=== PATIENT | female | born 1950 | race African-American/Black ===

== ENCOUNTER → 2016-09-20 | Outpatient (CLI) | payer MEDICARE ==
[2015-05-03 12:03] VITALS: BP 115/55
[~2016-09-20] MED LIST: ASPI81TA2 PO; CYCL5TAB PO; LATA2.5D2 OP; LOSA100T6 PO; LOSA50TA2 PO; METF10002 PO; MULT1TAB52 PO; SITA50TA PO
--- NOTE | 2016-09-20 12:41 | RAD ---
EXAM: Carotid Doppler sonogram. HISTORY: Carotid bruit. TECHNIQUE: Lewis scale and color Doppler sonographic evaluation of the neck with spectral waveform analysis was performed and static images are submitted for review. FINDINGS: RIGHT: The peak systolic velocity within the common carotid artery is 116 cm/sec. The peak systolic velocity within the internal carotid artery is 67 cm/sec and the end diastolic velocity within the internal carotid artery is 18 cm/sec. The ICA/CCA ratio is 0.58. Grayscale images demonstrate no significant plaquing. LEFT: The peak systolic velocity within the common carotid artery is 156 cm/sec. There is no clear grayscale stenosis at this site. The peak systolic velocity within the internal carotid artery is 101 cm/sec and the end diastolic velocity within the internal carotid artery is 33 cm/sec. The ICA/CCA ratio is 0.64. Grayscale images demonstrate no significant plaquing. There is antegrade flow within both vertebral arteries. The driver's license reviewing officer notes bilateral internal carotid artery tortuosity. There are multiple solid nodules incidentally noted within the thyroid lobes. These measure up to 2.5 cm on the right. IMPRESSION: 1. No evidence of hemodynamically significant stenosis. 2. Multinodular goiter. This is usually a benign process, but can be further assessed with thyroid ultrasound if there is further concern. PQRS Compliance Statement - Stenosis calculations for CT, MR and conventional angiography are based upon measurement of the distal ICA diameter in accordance with the NASCET methodology. Stenosis calculations for carotid ultrasound studies are derived from validated velocity criteria which are known to correlate with the NASCET methodology.
--- NOTE | 2016-09-20 15:41 | CARD ---
APPROVED REPORT EXAM: Two-dimensional and M-mode echocardiogram with Doppler and color Doppler. Other Information Quality : Good INDICATION Abnormal ECG Hypertension/HCVD RISK FACTORS Hypertension Hyperlipidemia Diabetes 2D DIMENSIONS RVDd2.6 (2.9-3.5cm)Left Atrium(2D)4.0 (1.6-4.0cm) IVSd1.0 (0.7-1.1cm)Aortic Root(2D)2.7 (2.0-3.7cm) LVDd4.5 (3.9-5.9cm)LVOT Diameter1.9 (1.8-2.4cm) PWd1.1 (0.7-1.1cm)LVDs2.7 (2.5-4.0cm) FS (%) 33.0 %SV65.2 ml LVEF(%)65.0 (>50%) Aortic Valve AoV Peak José Luis.169.5cm/sAoV VTI34.3cm AO Peak GR.11.5mmHgLVOT Peak José Luis.117.8cm/s LVOT VTI 26.90cmAO Mean GR.6mmHg LUIS DANIEL (VMAX)1.55qd0LEU (VTI)2.15cm2 Mitral Valve MV E Xdfomrdt57.0cm/sMV DECEL BFXI545oi MV A Oddzjfcm77.0cm/sMV INN05fs E/A Ratio0.8MVA (PHT)2.54cm2 TDI E/Lateral E'8.4E/Medial E'9.1 Tricuspid Valve TR P. Ceflgbwz295ws/sRAP YHVBXJYX7xyHg TR Peak Gr.54riEhXMHN13qiKx Pulmonary Vein S1 Wjbxidcq23.8cm/sD2 Nrumzlje68.5cm/s PVa teokwybk977mlvi LEFT VENTRICLE The left ventricle is normal size. There is normal left ventricular wall thickness. Left ventricle sy stolic function is normal. The Ejection Fraction is 60-65%. There is normal LV segmental wall motion. Transmitral Doppler flow pattern is Grade I-abnormal relaxation pattern. RIGHT VENTRICLE The right ventricle is normal size. The right ventricular systolic function is normal. ATRIA The left atrium is mildly dilated. The right atrium size is normal. The interatrial septum is intact with no evidence for an atrial septal defect or patent foramen ovale as noted on 2-D or Doppler imagi ng. AORTIC VALVE The aortic valve is calcified but opens well. Doppler and Color Flow revealed no significant aortic r egurgitation. There is no significant aortic valvular stenosis. MITRAL VALVE The mitral valve is calcified but opens well. There is no evidence of mitral valve prolapse. There is no mitral valve stenosis. Doppler and Color-flow revealed trace mitral regurgitation. TRICUSPID VALVE The tricuspid valve is normal in structure and function. Doppler and Color Flow revealed mild tricusp id regurgitation. There is mild pulmonary hypertension. The PA pressure was estimated at 31 mmHg. The re is no tricuspid valve stenosis. PULMONIC VALVE The pulmonary valve is normal in structure and function. Doppler and Color Flow revealed mild pulmoni c valvular regurgitation. There is no pulmonic valvular stenosis. GREAT VESSELS The aortic root is normal in size. The ascending aorta is normal in size. The IVC is normal in size a nd collapses >50% with inspiration. PERICARDIAL EFFUSION There is no evidence of significant pericardial effusion. Critical Notification Critical Value: No <Conclusion> Left ventricle systolic function is normal. The Ejection Fraction is 60-65%. There is normal LV segmental wall motion. Transmitral Doppler flow pattern is Grade I-abnormal relaxation pattern. The left atrium is mildly dilated. Trace mitral regurgitation. Mild tricuspid regurgitation. The PA pressure was estimated at 31 mmHg. There is no evidence of significant pericardial effusion.
== END | disposition home or self-care (01) ==
LOC: US 10:20
PROVIDERS: ATTEND Internal Medicine
DX: I07.1 Rheumatic tricuspid insufficiency (principal); I27.2 Other secondary pulmonary hypertension; R94.31 Abnormal electrocardiogram [ECG] [EKG]; I10 Essential (primary) hypertension; E04.2 Nontoxic multinodular goiter; I37.1 Nonrheumatic pulmonary valve insufficiency
CPT/HCPCS: 93306; 93880

== ENCOUNTER → 2017-03-05 | Outpatient (CLI) | payer MEDICARE ==
[2015-05-03 12:03] VITALS: BP 115/55
[~2017-03-05] MED LIST changes: +ASPI-630 PO; -ASPI81TA2 PO; +METF-620 PO; -METF10002 PO
--- NOTE | 2017-03-05 14:32 | RAD ---
Indication pain. AP and frog leg views of the left hip were obtained. There are some degenerative changes involving the hip. This is manifested as modest joint space compartment narrowing. No acute finding is seen
--- NOTE | 2017-03-05 14:35 | RAD ---
Indication shoulder pain for 2 months. Internally and externally rotated views of the left shoulder as well as a Y view were obtained. There are some mild degenerative changes at the AC joint. Some degenerative change is seen about the greater tubercle. Significant degenerative changes at the glenohumeral joint is not seen and no acute finding is seen. IMPRESSION: Mild degenerative change. No acute finding seen
== END | disposition home or self-care (01) ==
LOC: RAD 13:46
PROVIDERS: ATTEND Internal Medicine
DX: M19.012 Primary osteoarthritis, left shoulder (principal); M16.12 Unilateral primary osteoarthritis, left hip
CPT/HCPCS: 73030; 73502

== ENCOUNTER 2018-07-26 08:11 | Emergency (ER) | payer MEDICARE ==
[~2018-07-26] VITALS: Ht 160 cm; Wt 94.8 kg
[~2018-07-26 08:11] MED LIST changes: +LOSA-73 PO; +LOSA100T14 PO; -LOSA100T6 PO; -LOSA50TA2 PO; -METF-620 PO; +METF10007 PO
[2018-07-26] MEDS ORDERED: HYDR12.58 PO (08:34)
[2018-07-26] MEDS ORDERED: LABE100T5 PO (08:34)
[2018-07-26] MEDS ORDERED: CRESTOR40 MG PO (08:34)
[2018-07-26 08:37] LABS: BASO # 0.1 x10^3/uL (0.0-0.2); BASO % 1 % (0-3); EOS # 0.1 x10^3/uL (0.0-0.7); EOS % 2 % (0-3); HEMATOCRIT 34.7 % (36.0-47.0); HEMOGLOBIN 11.6 g/dL (12.0-15.5); LYMPH # 1.4 x10^3/uL (1.0-4.8); LYMPH % 30 % (24-48); MEAN CORPUSCULAR HEMOGLOBIN 26 pg (25-35); MEAN CORPUSCULAR HGB CONC 33 g/dL (31-37); MEAN CORPUSCULAR VOLUME 79 fL (79-100); MONO # 0.4 x10^3/uL (0.0-1.1); MONO % 8 % (0-9); NEUT # 2.6 x10^3uL (1.8-7.7); NEUT % 58 % (31-73); PLATELET COUNT 262 x10^3/uL (140-400); RED CELL DISTRIBUTION WIDTH 13.9 % (11.5-14.5); WHITE BLOOD COUNT 4.5 x10^3/uL (4.0-11.0)
[2018-07-26 08:46] LABS: CALCIUM 9.7 mg/dL (8.5-10.1); CREATININE 0.8 mg/dL (0.6-1.0); GFR 85.8; POTASSIUM 3.6 mmol/L (3.5-5.1)
[2018-07-26 08:52] LABS: ALBUMIN 3.3 g/dL (3.4-5.0); ALBUMIN/GLOBULIN RATIO 0.8 (1.0-1.7); MAGNESIUM 1.5 mg/dL (1.8-2.4); TOTAL BILIRUBIN 0.2 mg/dL (0.2-1.0); TOTAL PROTEIN 7.3 g/dL (6.4-8.2)
[2018-07-26] MEDS ORDERED: MECLIZINE HCL 12.5 MG TABLET. PO ONE (09:30)
--- NOTE | 2018-07-26 09:39 | RAD ---
Portable chest, 07/26/2018: HISTORY: Shortness of breath, dizziness Comparison is made to a study from 03/27/2018. The left ventricle is mildly enlarged. There is mild tortuosity of the thoracic aorta. The pulmonary vascularity is normal. There is minimal linear scarring or atelectasis laterally in the left lower chest. No acute infiltrate is seen. There is no evidence of pleural fluid. Mild spurring is present in the spine. IMPRESSION: 1. Left ventricular enlargement. 2. Minimal left basilar linear atelectasis or scarring. Electronically signed by: Cristopher Andino MD (07/26/2018 9:34 AM) [facility]
--- NOTE | 2018-07-26 09:42 | RAD ---
CT of the head without contrast, 07/26/2018: HISTORY: Dizziness There has been a previous left parietal craniotomy. 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 The ventricles are within normal limits in size. There is no shift of the midline structures. There is no evidence of acute intracranial hemorrhage or mass effect. IMPRESSION: 1. 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 2. No acute intracranial abnormality is detected. PQRS Compliance Statement: One or more of the following individualized dose reduction techniques were utilized for this examination: 1. Automated exposure control 2. Adjustment of the mA and/or kV according to patient size 3. Use of iterative reconstruction technique Electronically signed by: Cristopher Andino MD (07/26/2018 9:38 AM) [facility]
--- NOTE | 2018-07-26 09:46 | PHYS DOC ---
Past Medical History Past Medical History: Diabetes-Type II, Glaucoma, High Cholesterol, Hypertension Past Surgical History: Other Additional Past Surgical Histo: AV Malformation of the brain Alcohol Use: None Drug Use: None Adult General Chief Complaint Chief Complaint: DIZZY/LIGHT HEADED HPI HPI Patient is a 68 year old female presented to ER today for evaluation of dizziness when she woke up this morning. Patient feels like the room was spinning around her, denies any ringing in her ear. Patient denies any chest pain, no trouble breathing. Patient says she has this same episode 3 days ago but it was not as severe. Patient denies any headache, no neck pain, no blurry vision. Review of Systems Review of Systems Constitutional: Denies fever or chills [] Eyes: Denies change in visual acuity, redness, or eye pain [] HENT: Denies nasal congestion or sore throat [] Respiratory: Denies cough or shortness of breath [] Cardiovascular: No additional information not addressed in HPI [] GI: Denies abdominal pain, nausea, vomiting, bloody stools or diarrhea [] : Denies dysuria or hematuria [] Musculoskeletal: Denies back pain or joint pain [] Integument: Denies rash or skin lesions [] Neurologic: Denies headache, focal weakness or sensory changes. POSITIVE FOR DIZZINESS. Endocrine: Denies polyuria or polydipsia [] All other systems were reviewed and found to be within normal limits, except as documented in this note. Current Medications Current Medications Current Medications Medications (Trade) Dose Ordered Sig/Amadou Start Time Stop Time Status Last Admin Dose Admin Meclizine HCl (Antivert) 50 mg 1X ONCE 07/26/18 09:30 07/26/18 09:31 DC 07/26/18 09:34 50 MG Allergies Allergies Allergies Coded Allergies Type Severity Reaction Last Updated Verified No Known Drug Allergies 05/03/15 No Physical Exam Physical Exam Constitutional: Well developed, well nourished, no acute distress, non-toxic appearance. [] HENT: Normocephalic, atraumatic, bilateral external ears normal, oropharynx moist, no oral exudates, nose normal. RIGHT TM BULGING. Eyes: PERRLA, EOMI, conjunctiva normal, no discharge. [] Neck: Normal range of motion, no tenderness, supple, no stridor. [] Cardiovascular:Heart rate regular rhythm, LOUD SYSTOLIC MURMUR. Lungs & Thorax: Bilateral breath sounds clear to auscultation [] Abdomen: Bowel sounds normal, soft, no tenderness, no masses, no pulsatile masses. [] Skin: Warm, dry, no erythema, no rash. [] Back: No tenderness, no CVA tenderness. [] Extremities: No tenderness, no cyanosis, no clubbing, ROM intact, no edema. [] Neurologic: Alert and oriented X 3, normal motor function, normal sensory function, no focal deficits noted. [] Psychologic: Affect normal, judgement normal, mood normal. [] Current Patient Data Vital Signs Vital Signs Date Time Temp Pulse Resp B/P (MAP) Pulse Ox O2 Delivery O2 Flow Rate FiO2 07/26/18 08:12 98.1 67 18 184/79 (114) 98 Room Air 98.1 Lab Values Laboratory Tests Test 07/26/18 08:25 07/26/18 09:43 White Blood Count 4.5 x10^3/uL (4.0-11.0) Red Blood Count 4.40 x10^6/uL (3.50-5.40) Hemoglobin 11.6 g/dL (12.0-15.5) L Hematocrit 34.7 % (36.0-47.0) L Mean Corpuscular Volume 79 fL (79-100) Mean Corpuscular Hemoglobin 26 pg (25-35) Mean Corpuscular Hemoglobin Concent 33 g/dL (31-37) Red Cell Distribution Width 13.9 % (11.5-14.5) Platelet Count 262 x10^3/uL (140-400) Neutrophils (%) (Auto) 58 % (31-73) Lymphocytes (%) (Auto) 30 % (24-48) Monocytes (%) (Auto) 8 % (0-9) Eosinophils (%) (Auto) 2 % (0-3) Basophils (%) (Auto) 1 % (0-3) Neutrophils # (Auto) 2.6 x10^3uL (1.8-7.7) Lymphocytes # (Auto) 1.4 x10^3/uL (1.0-4.8) Monocytes # (Auto) 0.4 x10^3/uL (0.0-1.1) Eosinophils # (Auto) 0.1 x10^3/uL (0.0-0.7) Basophils # (Auto) 0.1 x10^3/uL (0.0-0.2) Prothrombin Time 12.0 SEC (11.7-14.0) Prothrombin Time INR 0.9 (0.8-1.1) Sodium Level 145 mmol/L (136-145) Potassium Level 3.6 mmol/L (3.5-5.1) Chloride Level 105 mmol/L (98-107) Carbon Dioxide Level 30 mmol/L (21-32) Anion Gap 10 (6-14) Blood Urea Nitrogen 14 mg/dL (7-20) Creatinine 0.8 mg/dL (0.6-1.0) Estimated GFR (Cockcroft-Gault) 85.8 BUN/Creatinine Ratio 18 (6-20) Glucose Level 141 mg/dL (70-99) H Calcium Level 9.7 mg/dL (8.5-10.1) Magnesium Level 1.5 mg/dL (1.8-2.4) L Total Bilirubin 0.2 mg/dL (0.2-1.0) Aspartate Amino Transferase (AST) 20 U/L (15-37) Alanine Aminotransferase (ALT) 21 U/L (14-59) Alkaline Phosphatase 90 U/L (46-116) Creatine Kinase 104 U/L (26-192) Creatine Kinase MB (Mass) 1.5 ng/mL (0.0-3.6) Creatine Kinase MB Relative Index 1.4 % (0-4) Troponin I Quantitative < 0.017 ng/mL (0.000-0.055) RO-Tbt-Q-Type Natriuretic Peptide 271 pg/mL (0-124) H Total Protein 7.3 g/dL (6.4-8.2) Albumin 3.3 g/dL (3.4-5.0) L Albumin/Globulin Ratio 0.8 (1.0-1.7) L Thyroid Stimulating Hormone (TSH) 2.422 uIU/mL (0.358-3.74) Urine Collection Type Void Urine Color Yellow Urine Clarity Clear Urine pH 7.0 Urine Specific [place] 1.015 Urine Protein Negative mg/dL (NEG-TRACE) Urine Glucose (UA) Negative mg/dL (NEG) Urine Ketones (Stick) Negative mg/dL (NEG) Urine Blood Negative (NEG) Urine Nitrite Negative (NEG) Urine Bilirubin Negative (NEG) Urine Urobilinogen Dipstick 0.2 mg/dL (0.2 mg/dL) Urine Leukocyte Esterase Small (NEG) Urine RBC Occ /HPF (0-2) Urine WBC Occ /HPF (0-4) Urine Squamous Epithelial Cells Few /LPF Urine Bacteria Few /HPF (0-FEW) Laboratory Tests 07/26/18 08:25 Laboratory Tests 07/26/18 08:25 EKG EKG EKG WAS READ BY THIS PHYSICIAN AT 954, RATE OF 63 BPM, NO STEMI, SINUS RHYTHM. Radiology/Procedures Radiology/Procedures [][address] [address] IMAGING REPORT Signed PATIENT: NAM MONZON ACCOUNT: [id number] : 1950 LOCATION: ER AGE: 68 SEX: F EXAM STATUS: PRE ER ORD. PHYSICIAN: DOUG WATTS DO REASON: dizziness episode off and on for three days, worse this am. PROCEDURE: CT HEAD WO CONTRAST CT of the head without contrast, 07/26/2018: HISTORY: Dizziness There has been a previous left parietal craniotomy. 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 The ventricles are within normal limits in size. There is no shift of the midline structures. There is no evidence of acute intracranial hemorrhage or mass effect. IMPRESSION: 1. 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 2. No acute intracranial abnormality is detected. PQRS Compliance Statement: One or more of the following individualized dose reduction techniques were utilized for this examination: 1. Automated exposure control 2. Adjustment of the mA and/or kV according to patient size 3. Use of iterative reconstruction technique Electronically signed by: Cristopher Andino MD (07/26/2018 9:38 AM) [facility] DICTATED and SIGNED BY: CRISTOPHER ANDINO MD DATE: 07/26/18 [id number] [place] [address] IMAGING REPORT Signed PATIENT: NAM MONZON ACCOUNT: [id number] : 1950 LOCATION: ER AGE: 68 SEX: F EXAM STATUS: PRE ER ORD. PHYSICIAN: DOUG WATTS DO REASON: soa PROCEDURE: CHEST AP ONLY Portable chest, 07/26/2018: HISTORY: Shortness of breath, dizziness Comparison is made to a study from 03/27/2018. The left ventricle is mildly enlarged. There is mild tortuosity of the thoracic aorta. The pulmonary vascularity is normal. There is minimal linear scarring or atelectasis laterally in the left lower chest. No acute infiltrate is seen. There is no evidence of pleural fluid. Mild spurring is present in the spine. IMPRESSION: 1. Left ventricular enlargement. 2. Minimal left basilar linear atelectasis or scarring. Electronically signed by: Cristopher Andino MD (07/26/2018 9:34 AM) [facility] DICTATED and SIGNED BY: CRISTOPHER ANDINO MD DATE: 07/26/189[address] Course & Med Decision Making Course & Med Decision Making Pertinent Labs and Imaging studies reviewed. (See chart for details) Patient felt much better after she was given Meclizine. She was able to get up and walked without any problem. Patient will be discharged home. She is instructed to follow up with ENT doctor next week for further evaluation. Patient was advised to follow up with her family doctor for referral to senior net developer architect for evaluation of enlarged heart found on xray today. Dragon Disclaimer Dragon Disclaimer This electronic medical record was generated, in whole or in part, using a voice recognition dictation system. Departure Departure Impression: Primary Impression: Vertigo Disposition: 01 HOME, SELF-CARE Condition: IMPROVED Referrals: MAXIMINO PENDLETON MD (PCP) follow up with your doctor for referral to ENT DOCTOR FOR FURTHER EVALUATION. YOU WILL ALSO NEED TO FOLLOW UP WITH CARDIOLOGY FOR EVALUATION OF ENLARGED HEART FOUND ON XRAY TODAY. Patient Instructions: Vertigo Scripts Meclizine Hcl (MECLIZINE HCL) 25 Mg Tablet 1 TAB PO PRN TID PRN for DIZZINESS, #30 TAB Prov: DOUG WATTS DO 07/26/18 DOUG WATTS DO Jul 26, 2018 09:46
[2018-07-26 09:51] LABS: BILIRUBIN,URINE NEGATIVE (NEG); CLARITY,URINE CLEAR; COLOR,URINE YELLOW; NITRITE,URINE NEGATIVE (NEG); PROTEIN,URINE NEGATIVE (NEG-TRACE); UROBILINOGEN,URINE 0.2 mg/dL (0.2 mg/dL)
[2018-07-26 10:00] LABS: BACTERIA,URINE FEW /HPF (0-FEW); RBC,URINE OCC /HPF (0-2); SQUAMOUS EPITHELIAL CELL,UR FEW /LPF; WBC,URINE OCC /HPF (0-4)
[2018-07-26] MEDS ORDERED: MECL25TA3 PO (11:02)
[2018-07-26 11:24] VITALS: BP 152/68
--- NOTE | 2018-07-26 12:11 | EKG ---
[facility] [address] [place] [address] Test Date: 2018-07-26 Test Time: 08:21:29 Pat Name: NAM MONZON Department: Room: Gender: Female Case Coordinator: : 1950 Requested By: DOUG WATTS Order Number: [id number] Reading MD: Jarvis Anderson Measurements Intervals [place] Rate: 65 P: AL: QRS: -9 QRSD: 66 T: 5 QT: 420 QTc: 442 Interpretive Statements ATRIAL FIBRILLATION LEFTWARD AXIS ABNORMAL ECG No previous ECG available for comparison Electronically Signed On 07-31-2018 15:25:01 SCRUFF WORKER by Jarvis Anderson
--- NOTE | 2018-07-26 14:47 | EKG ---
[facility] [address] [place] [address] Test Date: 2018-07-26 Test Time: 09:54:55 Pat Name: NAM MONZON Department: Room: Gender: Female Assigner: FRANCESCA : 1950 Requested By: DOUG WATTS Order Number: [id number] Reading MD: Jarvis Anderson Measurements Intervals [place] Rate: 62 P: 0 WI: 160 QRS: -7 QRSD: 64 T: 5 QT: 402 QTc: 414 Interpretive Statements SINUS RHYTHM LEFTWARD AXIS Electronically Signed On 07-31-2018 15:25:06 PIECE WORK INSPECTOR by Jarvis Anderson
== END 2018-07-26 12:12 | disposition home or self-care (01) ==
LOC: ER 08:11
DX: R42 Dizziness and giddiness (principal); E11.9 Type 2 diabetes mellitus without complications; H40.9 Unspecified glaucoma; I10 Essential (primary) hypertension; E78.00 Pure hypercholesterolemia, unspecified; Z79.899 Other long term (current) drug therapy
CPT/HCPCS: 36415; 70450; 71045; 80053; 81001; 82550; 82553; 83735; 83880; 84443; 84484; 85025; 85610; 87086; 87186; 93005; 99284; J8597

== ENCOUNTER → 2018-08-18 | Outpatient (CLI) | payer MEDICARE ==
[2018-07-26 11:24] VITALS: BP 152/68
[~2018-08-18] MED LIST changes: +CRESTOR40 MG PO; +HYDR12.58 PO; +LABE100T5 PO; +MECL25TA3 PO
[2018-08-18 13:17] LABS: FREE T4 0.92 ng/dL (0.76-1.46); THYROID STIM HORMONE (TSH) 1.339 uIU/mL (0.358-3.74)
--- NOTE | 2018-08-18 13:46 | CARD ---
MR#: [id number] Date of Study: 08/18/2018 Ordering Physician: MAXIMINO PENDLETON, Referring Physician: MAXIMINO PENDLETON, Tech: Perla Holder [facility] APPROVED REPORT EXAM: Two-dimensional and M-mode echocardiogram with Doppler and color Doppler. Other Information Quality : GoodHR: 80bpm Rhythm : NSR INDICATION Enlarged LV on x-ray 2D DIMENSIONS RVDd3.4 (2.9-3.5cm)Left Atrium(2D)3.3 (1.6-4.0cm) IVSd1.1 (0.7-1.1cm)Aortic Root(2D)2.9 (2.0-3.7cm) LVDd4.1 (3.9-5.9cm)LVOT Diameter1.8 (1.8-2.4cm) PWd0.9 (0.7-1.1cm)LVDs2.6 (2.5-4.0cm) FS (%) 36.8 %SV49.4 ml LVEF(%)67.2 (>50%) M-Mode DIMENSIONS Left Atrium(MM)3.67 (2.5-4.0cm)Aortic Root3.07 (2.2-3.7cm) Aortic Valve AoV Peak José Luis.149.1cm/sAoV VTI31.9cm AO Peak GR.8.9mmHgLVOT Peak José Luis.94.2cm/s AO Mean GR.5mmHgAVA (VMAX)1.60cm2 LUIS DANIEL (VTI)1.70cm2 Mitral Valve MV E Vkghlquj09.8cm/sMV DECEL RMSW582oy MV A Vydhyvdv040.2cm/sE/A Ratio0.6 MV A Pupkdcpv755ju Pulmonary Valve PV Peak Fuivegzg88.2cm/s Tricuspid Valve TR P. Wihhsest573eg/sRAP SVAWRPEG0clRi TR Peak Gr.08jbQrQGDA29mqZm Pulmonary Vein S1 Xzmefkvl33.2cm/sD2 Egwvieli67.3cm/s PVa ttpisesp206rejt LEFT VENTRICLE The left ventricle is normal size. There is normal left ventricular wall thickness. The left ventricu lar systolic function is normal. The Ejection Fraction is 60-65%. There is normal LV segmental wall m otion. Transmitral Doppler flow pattern is Grade I-abnormal relaxation pattern. RIGHT VENTRICLE The right ventricle is normal size. There is normal right ventricular wall thickness. The right ventr icular systolic function is normal. ATRIA The left atrium size is normal. The right atrium size is normal. The interatrial septum is intact wit h no evidence for an atrial septal defect or patent foramen ovale as noted on 2-D or Doppler imaging. AORTIC VALVE The aortic valve is thickened but opens well. The aortic valve is trileaflet. Doppler and Color Flow revealed no significant aortic regurgitation. There is no significant aortic valvular stenosis. MITRAL VALVE The mitral valve is thickened but opens well. There is no evidence of mitral valve prolapse. There is no mitral valve stenosis. Doppler and Color Flow revealed no mitral valve regurgitation noted. TRICUSPID VALVE The tricuspid valve is normal in structure and function. Doppler and Color Flow revealed trace tricus pid regurgitation. The PA pressure was estimated at 27 mmHg. There is no tricuspid valve prolapse or vegetation. There is no tricuspid valve stenosis. PULMONIC VALVE The pulmonary valve is normal in structure and function. Doppler and Color Flow revealed trace pulmon ic valvular regurgitation. There is no pulmonic valvular stenosis. GREAT VESSELS The aortic root is normal in size. The ascending aorta is normal in size. The IVC is normal in size a nd collapses >50% with inspiration. PERICARDIAL EFFUSION There is no evidence of significant pericardial effusion. Critical Notification Critical Value: No <Conclusion> The left ventricular systolic function is normal. The Ejection Fraction is 60-65%. There is normal LV segmental wall motion. Transmitral Doppler flow pattern is Grade I-abnormal relaxation pattern. Trace tricuspid regurgitation. The PA pressure was estimated at 27 mmHg. There is no evidence of significant pericardial effusion. Signed by : Jarvis Anderson, Electronically Approved : 08/18/2018 13:44:33
[2018-08-18 19:12] LABS: HEMOGLOBIN A1C 6.7 % (4.8-5.6)
== END | disposition home or self-care (01) ==
LOC: ECHO 12:21
PROVIDERS: ATTEND Internal Medicine
DX: I51.7 Cardiomegaly (principal); R00.8 Other abnormalities of heart beat
CPT/HCPCS: 36415; 82043; 83036; 83880; 84439; 84443; 93306

== ENCOUNTER → 2018-11-11 | Outpatient (CLI) | payer MEDICARE ==
--- NOTE | 2018-11-11 15:20 | RAD ---
EXAM: Right knee, 3 views. HISTORY: Pain. COMPARISON: 02/09/2011. FINDINGS: There is medial compartment joint space narrowing with subchondral sclerosis, marginal osteophytosis and slight bony remodeling. There is also patellofemoral compartment joint space narrowing with marginal spurring. There is lateral compartment chondrocalcinosis. There is slight enthesopathy along the patella. No significant joint effusion is seen. IMPRESSION: 1. Moderate medial and patellofemoral compartment osteoarthritis the right knee and lateral compartment chondrocalcinosis. 2. No acute osseous finding. Electronically signed by: Hailey Rodriguez MD (11/11/2018 3:17 PM) [facility]
--- NOTE | 2018-11-11 15:31 | RAD ---
EXAM: Right lower extremity venous Doppler sonogram. HISTORY: Pain. TECHNIQUE: Lewis scale and color Doppler sonographic evaluation of the right lower extremity veins with spectral waveform analysis was performed. FINDINGS: There is normal color flow, normal compressibility and there are normal spectral waveforms in the common femoral, superficial femoral, popliteal, posterior tibial and greater saphenous veins. IMPRESSION: No Doppler evidence of lower extremity deep venous thrombosis. Electronically signed by: Hailey Rodriguez MD (11/11/2018 3:28 PM) [place] [id number]
[2018-11-11 15:45] LABS: BASO % 1 % (0-3); EOS # 0.1 x10^3/uL (0.0-0.7); EOS % 2 % (0-3); HEMOGLOBIN 11.9 g/dL (12.0-15.5); LYMPH # 1.3 x10^3/uL (1.0-4.8); LYMPH % 33 % (24-48); MEAN CORPUSCULAR HEMOGLOBIN 25 pg (25-35); MEAN CORPUSCULAR HGB CONC 32 g/dL (31-37); MEAN CORPUSCULAR VOLUME 78 fL (79-100); MONO # 0.3 x10^3/uL (0.0-1.1); MONO % 9 % (0-9); NEUT # 2.2 x10^3uL (1.8-7.7); NEUT % 56 % (31-73); PLATELET COUNT 272 x10^3/uL (140-400); RED BLOOD COUNT 4.76 x10^6/uL (3.50-5.40); RED CELL DISTRIBUTION WIDTH 14.3 % (11.5-14.5); WHITE BLOOD COUNT 3.9 x10^3/uL (4.0-11.0)
[2018-11-11 15:55] LABS: BILIRUBIN,URINE NEGATIVE (NEG); CLARITY,URINE CLEAR; COLOR,URINE YELLOW; NITRITE,URINE NEGATIVE (NEG); PROTEIN,URINE NEGATIVE (NEG-TRACE); UROBILINOGEN,URINE 0.2 mg/dL (0.2 mg/dL)
[2018-11-11 16:00] LABS: ALBUMIN 3.8 g/dL (3.4-5.0); CALCIUM 9.9 mg/dL (8.5-10.1); CREATININE 1.2 mg/dL (0.6-1.0); GFR 53.7; POTASSIUM 4.1 mmol/L (3.5-5.1); TOTAL BILIRUBIN 0.4 mg/dL (0.2-1.0); TOTAL PROTEIN 7.6 g/dL (6.4-8.2)
[2018-11-11 16:01] LABS: CHOLESTEROL/HDL RATIO 3.1
[2018-11-11 16:05] LABS: HYALINE CASTS, URINE MODERATE /HPF; SQUAMOUS EPITHELIAL CELL,UR MOD /LPF
[2018-11-11 16:06] LABS: FREE T4 0.96 ng/dL (0.76-1.46); THYROID STIM HORMONE (TSH) 1.244 uIU/mL (0.358-3.74)
[2018-11-11 16:07] LABS: BACTERIA,URINE 0 /HPF (0-FEW); GRANULAR CASTS,URINE FEW /HPF; WBC,URINE OCC /HPF (0-4)
--- NOTE | 2018-11-11 16:17 | RAD ---
Right foot, 3 views, 11/11/2018: HISTORY: Foot injury this winter There is a small nonunited fracture at the base of the fifth metatarsal. No additional fracture or dislocation is identified. There are mild scattered degenerative changes including the first MTP joint. Subcutaneous edema is evident. There are mild arterial calcifications. IMPRESSION: Nonunited fracture of the base of the fifth metatarsal. Electronically signed by: Cristopher Andino MD (11/11/2018 4:14 PM) [facility]
[2018-11-12 01:12] LABS: HEMOGLOBIN A1C 6.9 % (4.8-5.6)
== END | disposition home or self-care (01) ==
LOC: RAD 14:32
PROVIDERS: ATTEND Internal Medicine
DX: S92.351A Displaced fracture of fifth metatarsal bone, right foot, initial encounter for closed fracture (principal); M17.11 Unilateral primary osteoarthritis, right knee; M11.261 Other chondrocalcinosis, right knee; M76.891 Other specified enthesopathies of right lower limb, excluding foot; I70.298 Other atherosclerosis of native arteries of extremities, other extremity; I10 Essential (primary) hypertension; E11.9 Type 2 diabetes mellitus without complications; E78.5 Hyperlipidemia, unspecified; E55.9 Vitamin D deficiency, unspecified; D64.9 Anemia, unspecified; R53.83 Other fatigue; X58.XXXA Exposure to other specified factors, initial encounter; Y93.89 Activity, other specified; Y92.89 Other specified places as the place of occurrence of the external cause; Y99.8 Other external cause status
CPT/HCPCS: 36415; 73562; 73630; 80053; 80061; 81001; 82306; 82607; 82728; 82746; 83036; 83540; 83550; 83880; 84439; 84443; 85025; 93971

== ENCOUNTER → 2020-01-03 | Outpatient (CLI) | payer MEDICARE ==
[~2020-01-03] MED LIST changes: +MECL-75 PO; -MECL25TA3 PO; +MULT-445 PO; -MULT1TAB52 PO
[2020-01-03 11:23] LABS: BASO % 1 % (0-3); EOS # 0.1 x10^3/uL (0.0-0.7); EOS % 4 % (0-3); HEMATOCRIT 34.6 % (36.0-47.0); HEMOGLOBIN 11.3 g/dL (12.0-15.5); LYMPH # 1.3 x10^3/uL (1.0-4.8); LYMPH % 32 % (24-48); MEAN CORPUSCULAR HEMOGLOBIN 25 pg (25-35); MEAN CORPUSCULAR HGB CONC 33 g/dL (31-37); MEAN CORPUSCULAR VOLUME 77 fL (79-100); MONO # 0.4 x10^3/uL (0.0-1.1); MONO % 9 % (0-9); NEUT # 2.1 x10^3/uL (1.8-7.7); NEUT % 54 % (31-73); PLATELET COUNT 238 x10^3/uL (140-400); RED BLOOD COUNT 4.46 x10^6/uL (3.50-5.40); RED CELL DISTRIBUTION WIDTH 14.9 % (11.5-14.5); WHITE BLOOD COUNT 3.9 x10^3/uL (4.0-11.0)
[2020-01-03 11:26] LABS: ALBUMIN 3.6 g/dL (3.4-5.0); CALCIUM 8.7 mg/dL (8.5-10.1); CREATININE 1.1 mg/dL (0.6-1.0); GFR 59.2; POTASSIUM 4.2 mmol/L (3.5-5.1); TOTAL BILIRUBIN 0.3 mg/dL (0.2-1.0); TOTAL PROTEIN 7.2 g/dL (6.4-8.2)
[2020-01-03 11:27] LABS: CHOLESTEROL/HDL RATIO 3.1
[2020-01-03 11:35] LABS: FREE T4 0.91 ng/dL (0.76-1.46); THYROID STIM HORMONE (TSH) 1.388 uIU/mL (0.358-3.74)
--- NOTE | 2020-01-03 13:05 | RAD ---
EXAM: Right knee, 2 views. HISTORY: Pain. COMPARISON: 11/11/2018 FINDINGS: 2 views of the right knee are obtained. There is medial compartment joint space narrowing with subchondral sclerosis and marginal spurring. There is mild right lateral and moderate right patellofemoral compartment spurring. There is a small joint effusion. There are joint loose bodies. IMPRESSION: 1. Severe medial compartment, moderate patellofemoral compartment and mild lateral compartment osteoarthritis of the right knee. 2. Small right knee effusion and right knee joint loose bodies. Electronically signed by: Hailey Rodriguez MD (01/03/2020 1:02 PM) [id number]
[2020-01-04 02:08] LABS: HEMOGLOBIN A1C 6.7 % (4.8-5.6)
== END | disposition home or self-care (01) ==
LOC: LAB 10:28
PROVIDERS: ATTEND Internal Medicine
DX: M17.11 Unilateral primary osteoarthritis, right knee (principal); M25.461 Effusion, right knee; M23.41 Loose body in knee, right knee; Z00.00 Encounter for general adult medical examination without abnormal findings; E11.9 Type 2 diabetes mellitus without complications; E11.65 Type 2 diabetes mellitus with hyperglycemia; D64.9 Anemia, unspecified; E55.9 Vitamin D deficiency, unspecified; E78.5 Hyperlipidemia, unspecified; N39.0 Urinary tract infection, site not specified
CPT/HCPCS: 36415; 73560; 80053; 80061; 82607; 82746; 83036; 84439; 84443; 84480; 85025

== ENCOUNTER → 2020-10-19 | Outpatient (CLI) | payer MEDICARE ==
[2020-10-19 14:05] LABS: BASO % 0 % (0-3); EOS # 0.1 x10^3/uL (0.0-0.7); EOS % 3 % (0-3); HEMATOCRIT 36.6 % (36.0-47.0); HEMOGLOBIN 12.2 g/dL (12.0-15.5); LYMPH # 1.3 x10^3/uL (1.0-4.8); LYMPH % 31 % (24-48); MEAN CORPUSCULAR HEMOGLOBIN 27 pg (25-35); MEAN CORPUSCULAR HGB CONC 33 g/dL (31-37); MEAN CORPUSCULAR VOLUME 79 fL (79-100); MONO # 0.3 x10^3/uL (0.0-1.1); MONO % 8 % (0-9); NEUT # 2.4 x10^3/uL (1.8-7.7); NEUT % 58 % (31-73); PLATELET COUNT 246 x10^3/uL (140-400); RED BLOOD COUNT 4.61 x10^6/uL (3.50-5.40); RED CELL DISTRIBUTION WIDTH 13.4 % (11.5-14.5); WHITE BLOOD COUNT 4.1 x10^3/uL (4.0-11.0)
[2020-10-19 14:27] LABS: ALBUMIN 3.6 g/dL (3.4-5.0); ALBUMIN/GLOBULIN RATIO 0.9 (1.0-1.7); CALCIUM 9.5 mg/dL (8.5-10.1); GFR 65.9; POTASSIUM 4.1 mmol/L (3.5-5.1); TOTAL BILIRUBIN 0.3 mg/dL (0.2-1.0); TOTAL PROTEIN 7.5 g/dL (6.4-8.2)
[2020-10-19 14:29] LABS: CHOLESTEROL/HDL RATIO 3.2
[2020-10-19 14:37] LABS: FREE T4 0.87 ng/dL (0.76-1.46); THYROID STIM HORMONE (TSH) 1.187 uIU/mL (0.358-3.74)
[2020-10-20 00:17] LABS: HEMOGLOBIN A1C 6.4 % (4.8-5.6)
== END ==
LOC: LAB 13:36
PROVIDERS: ATTEND Internal Medicine
DX: E11.65 Type 2 diabetes mellitus with hyperglycemia (principal); N39.0 Urinary tract infection, site not specified; Z00.00 Encounter for general adult medical examination without abnormal findings; E55.9 Vitamin D deficiency, unspecified; E11.9 Type 2 diabetes mellitus without complications; D64.9 Anemia, unspecified; E78.5 Hyperlipidemia, unspecified
CPT/HCPCS: 36415; 80053; 80061; 83036; 84439; 84443; 84481; 85025

== ENCOUNTER → 2021-06-01 | Outpatient (CLI) | payer OTHER ==
--- NOTE | 2021-06-01 12:49 | KCIC ---
PQRS Compliance Statement: One or more of the following individualized dose reduction techniques were utilized for this examinat ion: 1. Automated exposure control 2. Adjustment of the mA and/or kV according to patient size 3. Use of iterative reconstruction technique Coronary calcium score CT chest without contrast History: Chest pain, hypertension. Technique: With retrospective electrocardiogram gating axial reconstructed noncontrast images of the chest at the level of the coronary arteries was performed. Images were post processed on workstation and calcium score calculated using the modified Agatston Janowitz protocol. Findings: Total coronary calcium score is 398.4. This is a moderate to severe plaque burden and moder ate to high cardiovascular disease risk. This is based on the calcium score of 0 of the left main cor onary artery, score of 217.2 of the left anterior descending artery, score of 21.9 of the left circu mflex artery and score of 159.3 of the right coronary artery. Noncoronary findings demonstrate normal caliber great vessels. The cardiac size is upper limits of no rmal. No pericardial effusion. There is a 1.8 cm probable cyst or hemangioma in segment 4 of the live r. Another hypodensity is seen medially in segment 7 of the liver measuring approximately 4 cm which is incompletely imaged. It is not definitive from the images provided that this is in the liver and c ould be exophytic from the kidney or adrenal gland. There is no pleural abnormality. There is minimal scarring or atelectasis in the lingula. The visualized lungs are otherwise clear. IMPRESSION: 1. Patient's total calcium score is 398.4. 2. There is an incompletely imaged hypodense mass in or adjacent to the medial posterior right hepat ic lobe. Further evaluation with right upper quadrant ultrasound or CT or MR abdomen with and without contrast is recommended. Electronically signed by: Elio Liu MD (06/01/2021 12:46 PM) [id number]
--- NOTE | 2021-06-01 18:03 | KCIC ---
XR KNEE 1-2 VIEWS History: Chronic bilateral knee pain. Worsening right knee. Comparison: 01/03/2020 Technique: 2 views of left knee. 2 views of the right knee. Findings: Osseous mineralization is normal. No acute fracture or dislocaton. Degenerative changes of the knees with severe right medial tibiofemoral compartment and moderate left medial tibiofemoral compartment n arrowing. Bilateral tricompartmental osteophytes. No significant knee effusion bilaterally. Dystrophi c calcification in the medial left lower leg. Impression: 1. Right greater than left knee osteoarthritis. Electronically signed by: Efraín Benjamin MD (06/01/2021 6:01 PM) [id number]
== END ==
LOC: KCIC CT 10:02
PROVIDERS: ATTEND Internal Medicine
DX: I25.10 Atherosclerotic heart disease of native coronary artery without angina pectoris (principal); K76.89 Other specified diseases of liver; M17.0 Bilateral primary osteoarthritis of knee; M25.762 Osteophyte, left knee; M25.761 Osteophyte, right knee
CPT/HCPCS: 75571; 73560-50